=== PATIENT | female | born 1980 | race Caucasian/White ===

== ENCOUNTER 2020-12-07 16:19 | Emergency (ER) | payer OTHER ==
[2020-12-07 16:38] VITALS: BP 124/83; PULSE 18; TEMP 98.7; BMI 37.5
[2020-12-07] MEDS ORDERED: DIPHTH,PERTUSS(ACELL),TET 0.5 ML DISP.SYRIN IM ONE ×2 (16:40→17:28)
== END 2020-12-07 17:41 | disposition home or self-care (01) ==
LOC: FER 16:19
PROC: 0HQFXZZ Repair Right Hand Skin, External Approach (ICD-10-PCS; principal; 2020-12-07)
PROC: 3E0234Z Introduction of Serum, Toxoid and Vaccine into Muscle, Percutaneous Approach (ICD-10-PCS; 2020-12-07)
DX: S61.210A Laceration without foreign body of right index finger without damage to nail, initial encounter (principal); W26.8XXA Contact with other sharp object(s), not elsewhere classified, initial encounter; Y92.9 Unspecified place or not applicable
CPT/HCPCS: 90715; 99284-25

== ENCOUNTER 2020-12-15 04:59 | Emergency (ER) | payer OTHER ==
[2020-12-15 05:04] VITALS: BP 114/81; PULSE 95; BMI 37.5
== END 2020-12-15 05:18 | disposition home or self-care (01) ==
LOC: FER 04:59
DX: Z48.02 Encounter for removal of sutures (principal)
CPT/HCPCS: 99281-25